=== PATIENT | male | born 1985 | race Caucasian/White ===

== ENCOUNTER 2016-11-06 19:05 | Emergency (ER) | payer OTHER ==
[2016-11-06] MEDS ORDERED: HYDROcodone/APAP 5-325MG 1 EACH TAB PO STA (21:42)
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
[2016-11-06 21:57] VITALS: BP 158/68; PULSE 100; RESP 20; TEMP 98
== END 2016-11-06 21:57 | disposition home or self-care (01) ==
LOC: EC 19:05
DX: K43.2 Incisional hernia without obstruction or gangrene (principal); R05 Cough; F17.200 Nicotine dependence, unspecified, uncomplicated; Z98.890 Other specified postprocedural states
CPT/HCPCS: 99283

== ENCOUNTER → 2016-11-19 | Outpatient (CLI) | payer OTHER ==
--- NOTE | 2016-11-19 16:51 | CT ---
EXAMINATION TYPE: CT abdomen pelvis w con DATE OF EXAM: 11/19/2016 4:42 PM COMPARISON: NONE HISTORY: Incisional hernia superior to umbilicus without obstruction or gangrene per order. CT DLP: 923.30 mGycm, Automated Exposure Control for Dose Reduction was Utilized. CONTRAST: CT scan of the abdomen and pelvis is performed with oral and with IV Contrast, patient injected with 100 mL of Omnipaque 300. FINDINGS: LUNG BASES: There is calcified 6 mm nodule in the left lower lobe on axial image 1. LIVER/GB: Liver is low dense suggesting diffuse fatty infiltration. PANCREAS: No significant abnormality is seen. SPLEEN: No significant abnormality is seen. ADRENALS: No significant abnormality is seen. KIDNEYS: No significant abnormality is seen. BOWEL: Normal contrast-filled appendix is seen from cecum. Evaluation of distal bowel is suboptimal a s oral contrast does not reach past distal transverse colon level. There is mild wall thickening invo lving the left and proximal to mid sigmoid colon over a continuous segment. A long segment mild colit is needs to BE considered. In the midline of the abdominal wall roughly 7.5 cm superior to the umbili cus on coronal image 8 there is hernia containing portion of transverse colon. No suspicious dilatati on is seen to suggest obstruction. Hernia neck measures 3.2 cm transversely on axial image 30. There is additional ventral wall hernia defect right of midline on axial image 38 with herniated fat and small mesenteric vessels extending to left of midline above the umbilicus. There is a small fat-containing left periumbilical hernia on axial image 51. PROSTATE/SEMINAL VESICLES: No gross abnormality seen. LYMPH NODES: No greater than 1cm abdominal or pelvic lymph nodes are appreciated. OSSEOUS STRUCTURES: No significant abnormality is seen. OTHER: No significant additional abnormality is seen. IMPRESSION: 1. There is ventral wall incisional hernia in the midline of the abdomen above the umbilicus containi ng nonobstructed transverse colon. There are 2 additional smaller fat-containing ventral wall hernias as noted above. 2. Possible mild colitis involving the entire left and proximal sigmoid colon, differential includes infectious or inflammatory etiologies, clinical correlation advised.
== END | disposition home or self-care (01) ==
LOC: RADCTMAIN 16:16
PROVIDERS: ATTEND Surgery
DX: K43.2 Incisional hernia without obstruction or gangrene (principal); K43.9 Ventral hernia without obstruction or gangrene
CPT/HCPCS: 74177; Q9967

== ENCOUNTER → 2017-02-20 | Outpatient (CLI) | payer OTHER ==
--- NOTE | 2017-02-20 15:41 | XR ---
EXAMINATION TYPE: XR lumbar spine 2 or 3V DATE OF EXAM: 02/20/2017 COMPARISON: NONE HISTORY: Low back pain TECHNIQUE: Three-view lumbar spine FINDINGS: There 5 lumbar-type vertebral bodies. Pedicles are intact. Disc heights are preserved. Mini mal disc space narrowing and minimal retrolisthesis of L5 on S1 may be present. Vertebral body height s are preserved. Spina bifida occulta of S1 is present. IMPRESSION: 1. Minimal retrolisthesis of L5 on S1. 2. Posterior L5-S1 disc space narrowing may be present. 3. Acute osseous abnormality is not otherwise identified.
== END ==
LOC: RADXRMAIN 15:22
PROVIDERS: ATTEND Internal Medicine Geriatric Medicine
DX: M48.07 Spinal stenosis, lumbosacral region (principal); M43.17 Spondylolisthesis, lumbosacral region
CPT/HCPCS: 72100

== ENCOUNTER → 2017-06-04 | Outpatient (CLI) | payer OTHER ==
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
== END | disposition home or self-care (01) ==
LOC: RADUSWWP 06:52
PROVIDERS: ATTEND Internal Medicine Geriatric Medicine
DX: K76.0 Fatty (change of) liver, not elsewhere classified (principal); R16.0 Hepatomegaly, not elsewhere classified
CPT/HCPCS: 76700

== ENCOUNTER → 2017-12-03 | Outpatient (CLI) | payer OTHER ==
--- NOTE | 2017-12-03 09:15 | CT ---
EXAMINATION TYPE: CT brain wo con DATE OF EXAM: 12/03/2017 HISTORY: Patient complains of new onset seizures. CT DLP: 809.2 mGycm. Automated Exposure Control for Dose Reduction was Utilized. TECHNIQUE: CT scan of the head is performed without contrast. COMPARISON: None. FINDINGS: There is no acute intracranial hemorrhage or midline shift identified. There is diffuse v entricular and sulcal prominence consistent with diffuse age-related cerebral atrophy. There is post surgical change from low occipital craniectomy without suspicious residual tonsillar descent. The tika bes are intact and the visualized sinuses are clear. IMPRESSION: No acute intracranial hemorrhage or midline shift. There is mild to moderate diffuse ag e-related cerebral atrophy quite pronounced for patient's chronologic age. There is evidence of prio r Chiari type I correction surgery. Correlate with old outside CT or MRI advised to assess for interv al change.
== END | disposition home or self-care (01) ==
LOC: RADCTMAIN 08:34
PROVIDERS: ATTEND Internal Medicine Geriatric Medicine
DX: G31.9 Degenerative disease of nervous system, unspecified (principal); Z98.890 Other specified postprocedural states
CPT/HCPCS: 70450

== ENCOUNTER → 2017-12-31 | Outpatient (CLI) | payer OTHER ==
--- NOTE | 2017-12-31 13:17 | MR ---
EXAMINATION TYPE: MR brain wo/w con DATE OF EXAM: 12/31/2017 COMPARISON: NONE HISTORY: Seizure TECHNIQUE: Multiplanar, multisequence images of the brain and brainstem is performed without and with IV contras t, utilizing 7.5 mL intravenous Gadavist . FINDINGS: Diffusion weighted images demonstrate no evidence of a recent infarct or other diffusion ab normality. Ventricular system consistent with the patient's age. Nasal septal deviation noted. Changes of chroni c sinusitis. Midline structures demonstrate normal morphology. The craniocervical junction appears within normal limits. Post contrast images demonstrate no abnormal enhancement. The dural venous sinuses appear pa tent. IMPRESSION: 1. Mild chronic sinusitis with no acute process.
== END | disposition home or self-care (01) ==
LOC: RADMRIMAIN 11:39
PROVIDERS: ATTEND Nurse Practitioner Family
DX: R56.9 Unspecified convulsions (principal)
CPT/HCPCS: 70553; A9581

== ENCOUNTER 2020-07-07 20:21 | Emergency (ER) | payer OTHER ==
[2020-07-07] MEDS ORDERED: SODIUM CHLORIDE 0.9% 1,000 ML IV STA (20:54)
[2020-07-07] MEDS ORDERED: levETIRAcetam IV 1,000 MG in SALINE 1 100ML.BAG IVPB STA (20:55)
--- NOTE | 2020-07-07 21:04 | ED ---
Seizure HPI - General Chief Complaint: Seizure Stated Complaint: seizure Time Seen by Provider: 07/07/20 20:25 Source: patient, EMS Mode of arrival: EMS Limitations: no limitations - History of Present Illness Initial Comments: 35-year-old male patient presents to the emergency department today for evaluation after having a seizure at home. Patient states that one moment he was okay and the next moment he woke up on the floor with EMS personnel around him. States that family members reported that he had a seizure. He is unsure of the details. Denies any loss of bowel or bladder control or tongue biting. Patient states he has had one seizure in the past approximately one year ago. States he was started on Keppra at that time. Patient does admit that he does not take the medication as directed. He also admits to heavy alcohol use, states it is usually , Friday, Friday though he has been drinking more frequently recently. Denies history of alcohol withdrawal, DTs, or seizures related to alcohol use. He denies any current headache, blurred vision, double vision. Denies any current upper respiratory symptoms or fever. He is reporting some mild low back pain which she attributes to the fall. Denies any radiating pain down the legs. Denies numbness or tingling to the lower extremities. Denies any saddle anesthesia or loss of bowel or bladder control. Patient denies any recent rash, cough, shortness of breath, chest pain, abdominal pain, nausea, vomiting, diarrhea, constipation, back pain, dizziness, weakness, hematuria, dysuria, urinary urgency, urinary frequency, or any other complaints. - Related Data Previous Rx's Medication Instructions Recorded LORazepam [Ativan] 1 mg PO BID 3 Days #6 tab 07/07/20 Allergies Allergy/AdvReac Type Severity Reaction Status Date / Time No Known Allergies Allergy Verified 06/20/17 11:00 Review of Systems ROS Statement: Those systems with pertinent positive or pertinent negative responses have been documented in the HPI. ROS Other: All systems not noted in ROS Statement are negative. Past Medical History Past Medical History: No Reported History, Seizure Disorder Additional Past Medical History / Comment(s): hernias, glacoma History of Any Multi-Drug Resistant Organisms: None Reported Additional Past Surgical History / Comment(s): stomach surgery, spleen sx Past Psychological History: Depression Smoking Status: Current every day smoker Past Alcohol Use History: Daily Past Drug Use History: None Reported General Exam Limitations: no limitations General appearance: alert, in no apparent distress, other (This is a well-developed, well-nourished adult male patient in no acute distress. ) Eye exam: Present: normal appearance, PERRL, EOMI. Absent: scleral icterus, conjunctival injection, nystagmus, periorbital swelling ENT exam: Present: normal exam, normal oropharynx, mucous membranes moist Respiratory exam: Present: normal lung sounds bilaterally. Absent: respiratory distress, wheezes, rales, rhonchi, stridor Cardiovascular Exam: Present: regular rate, normal rhythm, normal heart sounds. Absent: systolic murmur, diastolic murmur, rubs, gallop, clicks GI/Abdominal exam: Present: soft, normal bowel sounds. Absent: distended, tenderness, guarding, rebound, rigid Neurological exam: Present: alert, oriented X3, CN II-XII intact, other (Mild tremor noted to the upper extremities.) Psychiatric exam: Present: normal affect, normal mood Skin exam: Present: warm, dry, intact, normal color. Absent: rash Course Vital Signs 07/07/20 07/07/20 07/07/20 20:24 21:31 22:45 Temperature 98.2 F 98.6 F 98.2 F Pulse Rate 88 85 89 Respiratory 18 18 16 Rate Blood Pressure 130/82 142/84 147/79 O2 Sat by Pulse 97 96 98 Oximetry Medical Decision Making - Medical Decision Making 35-year-old male patient presents to the emergency department today for evaluation after having a seizure. Physical examination was unremarkable. He is neurologically intact with no focal deficits. he does admit to not taking his Keppra as directed. We did give him IV loading dose. Labs were unremarkable. He does admit to being a heavy drinker. We did discuss possibility of alcohol withdrawal seizure. He is given a dose of Valium here in the emergency department. He will be given a prescription for Ativan. He is instructed that he should not drink alcohol and take this medication together. He is instructed to follow up his primary care physician for recheck in 1-2 days. Return parameters were discussed in detail. He verbalizes understanding and agrees with this plan. - Lab Data Result diagrams: 07/07/20 20:57 07/07/20 20:57 Lab Results 07/07/20 07/07/20 Range/Units 20:57 20:57 WBC 4.3 (3.8-10.6) k/uL RBC 4.18 L (4.30-5.90) m/uL Hgb 14.1 (13.0-17.5) gm/dL Hct 42.6 (39.0-53.0) % MCV 101.9 H (80.0-100.0) fL MCH 33.6 (25.0-35.0) pg MCHC 33.0 (31.0-37.0) g/dL RDW 13.0 (11.5-15.5) % Plt Count 213 (150-450) k/uL MPV 7.5 Neutrophils % 64 % Lymphocytes % 29 % Monocytes % 4 % Eosinophils % 1 % Basophils % 1 % Neutrophils # 2.8 (1.3-7.7) k/uL Lymphocytes # 1.3 (1.0-4.8) k/uL Monocytes # 0.2 (0-1.0) k/uL Eosinophils # 0.0 (0-0.7) k/uL Basophils # 0.0 (0-0.2) k/uL Macrocytosis Slight Sodium 133 L (137-145) mmol/L Potassium 4.0 (3.5-5.1) mmol/L Chloride 101 (98-107) mmol/L Carbon Dioxide 17 L (22-30) mmol/L Anion Gap 15 mmol/L BUN 7 L (9-20) mg/dL Creatinine 0.74 (0.66-1.25) mg/dL Est GFR (CKD-EPI)AfAm >90 (>60 ml/min/1.73 sqM) Est GFR (CKD-EPI)NonAf >90 (>60 ml/min/1.73 sqM) Glucose 140 H (74-99) mg/dL Calcium 9.4 (8.4-10.2) mg/dL Total Bilirubin 0.7 (0.2-1.3) mg/dL AST 47 (17-59) U/L ALT 39 (4-49) U/L Alkaline Phosphatase 52 (38-126) U/L Total Protein 7.7 (6.3-8.2) g/dL Albumin 4.7 (3.5-5.0) g/dL Serum Alcohol <10 mg/dL - EKG Data -: EKG Interpreted by Me EKG Comments: EKG obtained at 2033 shows normal sinus rhythm with a ventricular rate of 92, WV interval 184, QRS duration 106, QT 362, QTc 447. No evidence of ST elevation or depression. Disposition Clinical Impression: Seizure Disposition: HOME SELF-CARE Condition: Good Instructions (If sedation given, give patient instructions): Recurrent Seizures in Adults (ED) Additional Instructions: Take medications as directed. Do not drink alcohol while taking his medications. Follow-up through primary care physician for recheck in 1-2 days. Continue taking her seizure medication as directed. Return to the emergency department immediately for any new, worsening, or concerning symptoms. Prescriptions: LORazepam [Ativan] 1 mg PO BID 3 Days #6 tab Is patient prescribed a controlled substance at d/c from ED?: No Referrals: Steve Stubbs MD [Primary Care Provider] - 1-2 days Time of Disposition: 22:56
[2020-07-07 21:20] LABS: Basophils % (A) 1 %; Eosinophils % (A) 1 %; HCT 42.6 % (39.0-53.0); HGB 14.1 gm/dL (13.0-17.5); Lymphocytes # (A) 1.3 k/uL (1.0-4.8); Lymphocytes % (A) 29 %; MCH 33.6 pg (25.0-35.0); MCV 101.9 fL (80.0-100.0); Macrocytosis Slight; Mean Platelet Volume 7.5; Monocytes # (A) 0.2 k/uL (0-1.0); Monocytes % (A) 4 %; Neutrophils # (A) 2.8 k/uL (1.3-7.7); Neutrophils % (A) 64 %; Platelet Count 213 k/uL (150-450); RBC 4.18 m/uL (4.30-5.90); WBC 4.3 k/uL (3.8-10.6)
[2020-07-07 21:28] LABS: ALT 39 U/L (4-49); African American GFR (CKD) >90 (>60 ml/min/1.73 sqM); Albumin 4.7 g/dL (3.5-5.0); Alcohol <10 mg/dL; Anion Gap 15 mmol/L; Blood Urea Nitrogen 7 mg/dL (9-20); Calcium 9.4 mg/dL (8.4-10.2); Carbon Dioxide 17 mmol/L (22-30); Chloride 101 mmol/L (98-107); Glucose 140 mg/dL (74-99); Non-African American GFR(CKD) >90 (>60 ml/min/1.73 sqM); Sodium 133 mmol/L (137-145); Total Bilirubin 0.7 mg/dL (0.2-1.3); Total Protein 7.7 g/dL (6.3-8.2)
[2020-07-07 21:44] LABS: AST 47 U/L (17-59); Alkaline Phosphatase 52 U/L (38-126)
[2020-07-07] MEDS ORDERED: DIAZEPAM 5 MG/ML 2 ML INJ IVP STA (22:55)
[2020-07-07 23:16] VITALS: BP 147/79; PULSE 89; RESP 16; TEMP 98.2
== END 2020-07-07 23:05 | disposition home or self-care (01) ==
LOC: EC 20:21
DX: R56.9 Unspecified convulsions (principal); F17.200 Nicotine dependence, unspecified, uncomplicated
CPT/HCPCS: 93005; 80053; 80177; 85025; 99284; 96374; 96375; 96361; G0480; J3360; J1953; 80320

== ENCOUNTER 2020-12-25 21:04 | Emergency (ER) | payer OTHER ==
[2020-12-25 21:13] VITALS: TEMP 98.1
[2020-12-25 22:20] VITALS: RESP 16
[2020-12-25] MEDS ORDERED: SODIUM CHLORIDE 0.9% 1,000 ML IV STA (22:27)
[2020-12-25] MEDS ORDERED: levETIRAcetam IV 1,000 MG in SALINE 1 100ML.BAG IVPB STA (22:28)
[2020-12-25 23:04] LABS: Basophils % (A) 0 %; Eosinophils # (A) 0.1 k/uL (0-0.7); Eosinophils % (A) 1 %; HCT 39.9 % (39.0-53.0); HGB 14.2 gm/dL (13.0-17.5); Lymphocytes # (A) 0.8 k/uL (1.0-4.8); Lymphocytes % (A) 14 %; MCH 35.2 pg (25.0-35.0); MCHC 35.7 g/dL (31.0-37.0); MCV 98.5 fL (80.0-100.0); Mean Platelet Volume 8.1; Monocytes # (A) 0.2 k/uL (0-1.0); Monocytes % (A) 4 %; Neutrophils # (A) 4.2 k/uL (1.3-7.7); RBC 4.05 m/uL (4.30-5.90); RDW 13.3 % (11.5-15.5); WBC 5.3 k/uL (3.8-10.6)
[2020-12-25 23:10] LABS: ALT 30 U/L (4-49); AST 42 U/L (17-59); African American GFR (CKD) >90 (>60 ml/min/1.73 sqM); Albumin 4.6 g/dL (3.5-5.0); Alcohol <10 mg/dL; Alkaline Phosphatase 71 U/L (38-126); Anion Gap 8 mmol/L; Blood Urea Nitrogen 6 mg/dL (9-20); Calcium 9.5 mg/dL (8.4-10.2); Carbon Dioxide 26 mmol/L (22-30); Chloride 98 mmol/L (98-107); Glucose 111 mg/dL (74-99); Non-African American GFR(CKD) >90 (>60 ml/min/1.73 sqM); Potassium 3.7 mmol/L (3.5-5.1); Sodium 132 mmol/L (137-145); Total Bilirubin 0.8 mg/dL (0.2-1.3); Total Protein 7.4 g/dL (6.3-8.2)
--- NOTE | 2020-12-25 23:32 | CT ---
EXAMINATION TYPE: CT brain cspine wo con DATE OF EXAM: 12/25/2020 COMPARISON: CT brain 12/03/2017 HISTORY: seizure, fall CT DLP: 1309.5 mGycm Automated exposure control for dose reduction was used. Ventricles have normal size. There is no mass effect nor midline shift. There is no evidence of intra cranial hemorrhage. Calvarium is intact. Cervical vertebra have normal alignment. Posterior elements are intact. Disc spaces are fairly normal . Facet joints are intact. There is normal aeration of the mastoid sinuses. IMPRESSION: Negative CT scan cervical spine. Negative CT scan of the brain. No adverse change.
--- NOTE | 2020-12-25 23:35 | XR ---
EXAMINATION TYPE: XR ribs LT w pa chest xray DATE OF EXAM: 12/25/2020 COMPARISON: NONE HISTORY: Rib pain TECHNIQUE: 5 views FINDINGS: Heart and mediastinum are normal. Lungs are clear. Diaphragm is normal. There is no evidenc e of pleural effusion or pneumothorax. Left shoulder is intact. The left ribs appear intact. IMPRESSION: Normal chest. Normal left rib exam.
[2020-12-26 00:33] LABS: Platelet Count 83 k/uL (150-450)
--- NOTE | 2020-12-26 00:40 | ED ---
Seizure HPI - General Chief Complaint: Seizure Stated Complaint: seizure Time Seen by Provider: 12/25/20 22:07 Source: patient Mode of arrival: wheelchair Limitations: no limitations - History of Present Illness Initial Comments: 35 year-old male patient with history of seizures and alcohol abuse, presents to the emergency department for evaluation after having a seizure at home. Patient states that he was standing and fell backward, family witnessed the seizure which they state lasted around 5 minutes. Patient denies any tongue biting, loss of bowel, or bladder control. Patient does drink alcohol states that he last drank yesterday. He is reporting headache and back pain after the fall. Denies any neck pain. Denies any radiating leg pain. Denies saddle anesthesia. Denies numbness, tingling, or weakness to the extremities. Denies any blurred vision, double vision, denies spots or floaters. Patient denies any recent rash, fever, chills, cough, shortness of breath, chest pain, abdominal pain, nausea, vomiting, diarrhea, constipation, hematuria, dysuria, urinary urgency, urinary frequency, or any other complaints. - Related Data Home Medications Medication Instructions Recorded Confirmed Ibuprofen [Motrin Ib] 800 mg PO Q8H PRN 12/25/20 12/25/20 Keppra (Unknown Strength) 1 dose PO BID 12/25/20 12/25/20 Latanoprost/Pf [Latanoprost 0.005% 1 drop BOTH EYES HS 12/25/20 12/25/20 Eye Drop] Allergies Allergy/AdvReac Type Severity Reaction Status Date / Time No Known Allergies Allergy Verified 12/25/20 22:24 Review of Systems ROS Statement: Those systems with pertinent positive or pertinent negative responses have been documented in the HPI. ROS Other: All systems not noted in ROS Statement are negative. Past Medical History Past Medical History: No Reported History, Seizure Disorder Additional Past Medical History / Comment(s): hernias, glacoma History of Any Multi-Drug Resistant Organisms: None Reported Additional Past Surgical History / Comment(s): stomach surgery, spleen sx Past Psychological History: Depression Smoking Status: Current every day smoker Past Alcohol Use History: Daily Past Drug Use History: None Reported General Exam Limitations: no limitations General appearance: alert, in no apparent distress, other (Physical well- developed, well-nourished adult male patient in no acute distress. Vital signs upon presentation are temperature 98.1F, pulse 125, respirations 18, blood pres sure 134/96, pulse ox 95% on room air.) Eye exam: Present: normal appearance, PERRL, EOMI. Absent: scleral icterus, conjunctival injection, nystagmus, periorbital swelling ENT exam: Present: normal exam, normal oropharynx, mucous membranes moist Neck exam: Present: normal inspection, full ROM, other (Nontender, no step-off, no deformity to firm midline palpation of the posterior cervical spine. Full range of motion without pain or limitation.). Absent: tenderness, meningismus, lymphadenopathy Respiratory exam: Present: normal lung sounds bilaterally. Absent: respiratory distress, wheezes, rales, rhonchi, stridor Cardiovascular Exam: Present: regular rate, normal rhythm, normal heart sounds. Absent: systolic murmur, diastolic murmur, rubs, gallop, clicks GI/Abdominal exam: Present: soft, normal bowel sounds. Absent: distended, tenderness, guarding, rebound, rigid Neurological exam: Present: alert, oriented X3, CN II-XII intact Expanded Speech: Present: fluid speech Cranial nerves: EOM's Intact: Normal, Nystagmus: Normal Motor strength exam: RUE: 5, LUE: 5, RLE: 5, LLE: 5 Eye Response: (4) open spontaneously Motor Response: (6) obeys commands Verbal Response: (5) oriented [place] Total: 15 Psychiatric exam: Present: normal affect, normal mood Skin exam: Present: warm, dry, intact, normal color. Absent: rash Course Vital Signs 12/25/20 12/25/20 12/25/20 21:10 22:17 23:24 Temperature 98.1 F Pulse Rate 125 H 82 75 Respiratory 18 16 16 Rate Blood Pressure 134/96 129/82 122/83 O2 Sat by Pulse 95 98 98 Oximetry 12/26/20 01:35 Temperature Pulse Rate 71 Respiratory 16 Rate Blood Pressure 108/89 O2 Sat by Pulse 100 Oximetry Medical Decision Making - Medical Decision Making 35 year-old male patient presents for evaluation after seizure. Has had seizures in the past. Not currently taking any medication. Does admit to almost daily alcohol use. Labs reviewed and are relatively unremarkable. CT brain cspine negative. XR left ribs negative. He exhibited no further seizure activity and remained neurologically intact. He will be discharged to follow up with primary care physician for further evaluation and possibly follow up with neurology. Return parameters discussed in detail. Case discussed with my attending Dr. Esteban mata. - Lab Data Result diagrams: 12/25/20 22:36 12/25/20 22:36 Lab Results 12/25/20 12/25/20 Range/Units 22:36 22:36 WBC 5.3 (3.8-10.6) k/uL RBC 4.05 L (4.30-5.90) m/uL Hgb 14.2 (13.0-17.5) gm/dL Hct 39.9 (39.0-53.0) % MCV 98.5 (80.0-100.0) fL MCH 35.2 H (25.0-35.0) pg MCHC 35.7 (31.0-37.0) g/dL RDW 13.3 (11.5-15.5) % Plt Count 83 L (150-450) k/uL MPV 8.1 Lymphocytes % 14 % Monocytes % 4 % Eosinophils % 1 % Basophils % 0 % Neutrophils # 4.2 (1.3-7.7) k/uL Lymphocytes # 0.8 L (1.0-4.8) k/uL Monocytes # 0.2 (0-1.0) k/uL Eosinophils # 0.1 (0-0.7) k/uL Basophils # 0.0 (0-0.2) k/uL Sodium 132 L (137-145) mmol/L Potassium 3.7 (3.5-5.1) mmol/L Chloride 98 (98-107) mmol/L Carbon Dioxide 26 (22-30) mmol/L Anion Gap 8 mmol/L BUN 6 L (9-20) mg/dL Creatinine 0.62 L (0.66-1.25) mg/dL Est GFR (CKD-EPI)AfAm >90 (>60 ml/min/1.73 sqM) Est GFR (CKD-EPI)NonAf >90 (>60 ml/min/1.73 sqM) Glucose 111 H (74-99) mg/dL Calcium 9.5 (8.4-10.2) mg/dL Total Bilirubin 0.8 (0.2-1.3) mg/dL AST 42 (17-59) U/L ALT 30 (4-49) U/L Alkaline Phosphatase 71 (38-126) U/L Total Protein 7.4 (6.3-8.2) g/dL Albumin 4.6 (3.5-5.0) g/dL Serum Alcohol <10 mg/dL - Radiology Data Radiology results: report reviewed, image reviewed X-ray of the left ribs and chest were obtained. Report was reviewed in its entirety. Impression by Dr. Lowry shows normal chest. Normal left rib exam. CT brain and C-spine were obtained. Report was reviewed in its entirety. Impression by Dr. Lowry shows negative computed tomography scan cervical spine. Negative computed tomography scan of the brain. No adverse change. Disposition Clinical Impression: Seizure, Contusion of back, Abrasion of back, Scalp hematoma Disposition: HOME SELF-CARE Condition: Good Instructions (If sedation given, give patient instructions): Contusion in Adults (ED), Abrasion (ED), Recurrent Seizures in Adults (ED) Additional Instructions: Follow-up with primary care physician and neurologist for further evaluation as soon as possible. Consider halfway cessation of alcohol. Return to the emergency department for any new, worsening, or concerning symptoms. Is patient prescribed a controlled substance at d/c from ED?: No Referrals: Steve Stubbs MD [Primary Care Provider] - 1-2 days Time of Disposition: 01:12
[2020-12-26 01:36] VITALS: BP 108/89; PULSE 71
== END 2020-12-26 01:38 | disposition home or self-care (01) ==
LOC: EC 21:04
DX: S00.03XA Contusion of scalp, initial encounter (principal); S20.229A Contusion of unspecified back wall of thorax, initial encounter; R56.9 Unspecified convulsions; F17.200 Nicotine dependence, unspecified, uncomplicated; Z79.1 Long term (current) use of non-steroidal anti-inflammatories (NSAID); Z79.899 Other long term (current) drug therapy; W19.XXXA Unspecified fall, initial encounter
CPT/HCPCS: 36415; 80053; 85025; 71101; 72125; 70450; 99285; 96365; 96366; G0480; J1953; 80320

== ENCOUNTER 2023-06-02 19:39 | Observation (INO) | payer OTHER ==
[2023-06-02] MEDS ORDERED: SODIUM CHLORIDE 0.9% 500 ML 500 ML IV STA (20:11)
[2023-06-02] MEDS ORDERED: LORazepam 2 MG/ML INJ IV STA (20:11)
--- NOTE | 2023-06-02 21:23 | ED ---
General Adult HPI - General Chief complaint: Seizure Stated complaint: Seizure Time Seen by Provider: 06/02/23 20:04 Source: patient, EMS, RN notes reviewed, old records reviewed Mode of arrival: EMS - History of Present Illness Initial comments: 38-year-old male presents for evaluation of seizure. Patient does have seizure disorder and states that he does not take his medication as prescribed. He had 3-4 minute seizure with head trauma. He complains of headache at the time my evaluation. He also admits to daily drinking and states that his last drink was yesterday. He does also have a history of alcohol withdrawal seizure. - Related Data Home Medications Medication Instructions Recorded Confirmed Ibuprofen [Motrin Ib] 800 mg PO Q8H PRN 12/25/20 06/02/23 Allergies Allergy/AdvReac Type Severity Reaction Status Date / Time No Known Allergies Allergy Verified 06/02/23 22:27 Review of Systems ROS Statement: Those systems with pertinent positive or pertinent negative responses have been documented in the HPI. ROS Other: All systems not noted in ROS Statement are negative. Past Medical History Past Medical History: Seizure Disorder Additional Past Medical History / Comment(s): hernias, glacoma History of Any Multi-Drug Resistant Organisms: None Reported Additional Past Surgical History / Comment(s): stomach surgery, spleen sx Past Psychological History: Depression Smoking Status: Current every day smoker Past Alcohol Use History: Daily Past Drug Use History: None Reported General Exam General appearance: alert, in no apparent distress Head exam: Present: other (Right parietal occipital hematoma) Eye exam: Present: PERRL, EOMI ENT exam: Present: normal exam Neck exam: Present: normal inspection. Absent: tenderness, meningismus Respiratory exam: Present: normal lung sounds bilaterally. Absent: respiratory distress, wheezes Cardiovascular Exam: Present: regular rate, normal rhythm GI/Abdominal exam: Present: soft. Absent: distended, tenderness, guarding Extremities exam: Present: normal capillary refill. Absent: pedal edema Neurological exam: Present: alert, oriented X3, CN II-XII intact. Absent: motor sensory deficit Psychiatric exam: Present: normal affect, normal mood Skin exam: Present: warm, dry, intact. Absent: cyanosis, diaphoretic Course Vital Signs 06/02/23 06/02/23 19:41 22:27 Temperature 97.9 F Pulse Rate 93 89 Respiratory 18 18 Rate Blood Pressure 132/96 121/86 O2 Sat by Pulse 97 98 Oximetry Medical Decision Making - Medical Decision Making Was pt. sent in by a medical professional or institution ([facility], [employer], urgent care, hospital, or penitentiary...) When possible be specific @ -[No] Did you speak to anyone other than the patient for history (EMS, parent, family, police, friend...)? What history was obtained from this source @ -[No] Did you review nursing and triage notes (agree or disagree)? Why? @ -[I reviewed and agree with nursing and triage notes] Were old charts reviewed (outside hosp., previous admission, EMS record, old EKG, old radiological studies, urgent care reports/EKG's, penitentiary records)? Report findings @ -[No old charts were reviewed] Differential Diagnosis (chest pain, altered mental status, abdominal pain women, abdominal pain men, vaginal bleeding, weakness, fever, dyspnea, syncope, headache, dizziness, GI bleed, back pain, seizure, CVA, palpatations, mental health, musculoskeletal)? @Differential Seizure: Recurrent seizure disorder, febrile seizure, alcohol withdrawal, stimulants, meningitis, encephalitis, intercranial hemorrhage, intracranial tumor, stroke, eclampsia, thyrotoxicosis, hypocalcemia, hyponatremia, hypernatremia, hypomagnesemia, psychogenic, this is not meant to be an all-inclusive list. EKG interpreted by me (3pts min.). @Sinus rhythm rate of 91, CA interval 188, QRS duration 105, QTC [address] segment elevation. X-rays interpreted by me (1pt min.). @ -[None done] CT interpreted by me (1pt min.). @ CT negative for intracranial hemorrhage or mass effect U/S interpreted by me (1pt. min.). @ -[None done] What testing was considered but not performed or refused? (CT, X-rays, U/S, labs)? Why? @ -[None] What meds were considered but not given or refused? Why? @ -[None] Did you discuss the management of the patient with other professionals (professionals i.e. [facility], [employer], lab, RT, psych nurse, social group worker, ditch rider, t eacher, personnel officer, case briefer)? Give summary @Case discussed with Dr. May who will admit Was smoking cessation discussed for >3mins.? @ -[No] Was critical care preformed (if so, how long)? @ -[No] Were there social determinants of health that impacted care today? How? (Homelessness, low income, unemployed, alcoholism, drug addiction, transportation, low edu. Level, literacy, decrease access to med. care, longterm, rehab)? @ -[No] Was there de-escalation of care discussed even if they declined (Discuss DNR or withdrawal of care, Hospice)? DNR status @ -[No] What co-morbidities impacted this encounter? (DM, HTN, Smoking, COPD, CAD, Cancer, CVA, ARF, Chemo, Hep., AIDS, mental health diagnosis, sleep apnea, morbid obesity)? @ -[None] Was patient admitted / discharged? Hospital course, mention meds given and route, prescriptions, significant lab abnormalities, going to OR and other pertinent info. @ -[38-year-old male with witnessed seizure, head trauma, and history of both seizure history and withdrawal seizure history. Patient is alert and oriented, moving all extremities. Nonfocal neurologic exam. Stable vitals. He is somewhat tremulous. Given 2 At[address] upon arrival. Head CT negative for intracranial hemorrhage or mass effect. Laboratory studies reveal hypomagnesemia which is replaced. Patient will be admitted for suspected alcohol withdrawal seizure. Neurology has been placed on consult for evaluation. Undiagnosed new problem with uncertain prognosis? @ -[No] Drug Therapy requiring intensive monitoring for toxicity (Heparin, Nitro, Insulin, Cardizem)? @ -[No] Were any procedures done? @ -[No] Diagnosis/symptom? @ -[Seizure, alcohol withdrawal Acute, or Chronic, or Acute on Chronic? @ -Acute Uncomplicated (without systemic symptoms) or Complicated (systemic symptoms)? @ -Complicated Side effects of treatment? @ -[No] Exacerbation, Progression, or Severe Exacerbation? @ -[No] Poses a threat to life or bodily function? How? (Chest pain, [place], [place], pneumonia, PE, COPD, DKA, ARF, appy, cholecystitis, CVA, Diverticulitis, Homicidal, Suicidal, threat to staff... and all critical care pts) @ -[Yes, seizure, alcohol withdrawal, delirium tremens - Lab Data Result diagrams: 06/02/23 20:29 06/02/23 20:29 Lab Results 06/02/23 06/02/23 06/02/23 Range/Units 20:29 20:29 20:29 WBC 4.0 (3.8-10.6) k/uL RBC 3.77 L (4.30-5.90) m/uL Hgb 13.5 (13.0-17.5) gm/dL Hct 39.4 (39.0-53.0) % MCV 104.5 H (80.0-100.0) fL MCH 35.7 H (25.0-35.0) pg MCHC 34.2 (31.0-37.0) g/dL RDW 13.4 (11.5-15.5) % Plt Count 73 L (150-450) k/uL MPV 8.2 Neutrophils % (Manual) 77 % Band Neuts % (Manual) 2 % Lymphocytes % (Manual) 18 % Monocytes % (Manual) 3 % Neutrophils # (Manual) 3.10 (1.3-7.7) k/uL Lymphocytes # (Manual) 0.72 L (1.0-4.8) k/uL Monocytes # (Manual) 0.12 (0-1.0) k/uL Nucleated RBCs 0 (0-0) /100 WBC Manual Slide Review Performed Macrocytosis Slight Sodium 137 (137-145) mmol/L Potassium 4.0 (3.5-5.1) mmol/L Chloride 99 (98-107) mmol/L Carbon Dioxide 24 (22-30) mmol/L Anion Gap 14 mmol/L BUN 9 (9-20) mg/dL Creatinine 0.58 L (0.66-1.25) mg/dL Est GFR (CKD-EPI)AfAm >90 (>60 ml/min/1.73 sqM) Est GFR (CKD-EPI)NonAf >90 (>60 ml/min/1.73 sqM) Glucose 113 H (74-99) mg/dL Calcium 9.4 (8.4-10.2) mg/dL Magnesium 1.2 L (1.6-2.3) mg/dL Total Bilirubin 1.0 (0.2-1.3) mg/dL AST 105 H (17-59) U/L ALT 57 H (4-49) U/L Alkaline Phosphatase 61 (38-126) U/L Total Protein 6.8 (6.3-8.2) g/dL Albumin 4.2 (3.5-5.0) g/dL Urine Color Yellow Urine Appearance Clear (Clear) Urine pH 8.0 (5.0-8.0) Ur Specific [place] 1.015 (1.001-1.035) Urine Protein 1+ H (Negative) Urine Glucose (UA) Negative (Negative) Urine Ketones 1+ H (Negative) Urine Blood Negative (Negative) Urine Nitrite Negative (Negative) Urine Bilirubin Negative (Negative) Urine Urobilinogen 2.0 (<2.0) mg/dL Ur Leukocyte Esterase Negative (Negative) Urine RBC 1 (0-5) /hpf Urine WBC 1 (0-5) /hpf Ur Squamous Epith Cells 1 (0-4) /hpf Amorphous Sediment Rare H (None) /hpf Hyaline Casts 17 H (0-2) /lpf Urine Mucus Few H (None) /hpf Urine Opiates Screen Not Detected (NotDetected) Ur Oxycodone Screen Not Detected (NotDetected) Urine Methadone Screen Not Detected (NotDetected) Ur Propoxyphene Screen Not Detected (NotDetected) Ur Barbiturates Screen Not Detected (NotDetected) U Tricyclic Antidepress Not Detected (NotDetected) Ur Phencyclidine Scrn Not Detected (NotDetected) Ur Amphetamines Screen Not Detected (NotDetected) U Methamphetamines Scrn Not Detected (NotDetected) U Benzodiazepines Scrn Detected H (NotDetected) Urine Cocaine Screen Not Detected (NotDetected) U Marijuana (THC) Screen Not Detected (NotDetected) Serum Alcohol <10 mg/dL Disposition Clinical Impression: Generalized seizure, Alcohol withdrawal Disposition: ADMITTED IP TO THIS HOSP Condition: Stable Instructions (If sedation given, give patient instructions): Seizure/Epilepsy Discharge Instructions & Follow-Up Is patient prescribed a controlled substance at d/c from ED?: No Referrals: None,Stated [Primary Care Provider] - 1-2 days Time of Disposition: 23:25
[2023-06-02 21:26] LABS: HCT 39.4 % (39.0-53.0); HGB 13.5 gm/dL (13.0-17.5); MCH 35.7 pg (25.0-35.0); MCHC 34.2 g/dL (31.0-37.0); MCV 104.5 fL (80.0-100.0); Macrocytosis Slight; Mean Platelet Volume 8.2; RBC 3.77 m/uL (4.30-5.90); RDW 13.4 % (11.5-15.5)
--- NOTE | 2023-06-02 21:34 | CT ---
EXAMINATION TYPE: CT brain wo con CT DLP: 1234.4 mGycm, Automated exposure control for dose reduction was used. DATE OF EXAM: 06/02/2023 8:48 PM COMPARISON: 12/25/2020. CLINICAL INDICATION:Male, 38 years old with history of seizure activity, seizure TECHNIQUE: Brain: Axial CT images of the brain were obtained with coronal and sagittal reformats created and rev iewed. Contrast used: None. Oral contrast used: None. FINDINGS: Brain: Extra-axial spaces: No abnormal extra-axial fluid collections. Ventricular system: Within normal limits Cerebral parenchyma: No acute intraparenchymal hemorrhage or mass effect. The fairchild-white junction is well differentiated. Cerebellum: Unremarkable. Mass effect: No evidence of midline shift. Intracranial vasculature: unremarkable Soft tissues: r right scalp hematoma measuring up to 4.1 x 6 mm. Calvarium/osseous structures: No depressed skull fracture. Paranasal sinuses and mastoid air cells: Mild scattered paranasal sinus disease. Visualized orbits: Orbital contents are intact. IMPRESSION: 1. No acute intracranial process. 2. Right scalp hematoma without evidence of fracture.
[2023-06-02 21:40] LABS: ALT 57 U/L (4-49); AST 105 U/L (17-59); African American GFR (CKD) >90 (>60 ml/min/1.73 sqM); Albumin 4.2 g/dL (3.5-5.0); Alcohol <10 mg/dL; Alkaline Phosphatase 61 U/L (38-126); Anion Gap 14 mmol/L; Blood Urea Nitrogen 9 mg/dL (9-20); Calcium 9.4 mg/dL (8.4-10.2); Carbon Dioxide 24 mmol/L (22-30); Chloride 99 mmol/L (98-107); Glucose 113 mg/dL (74-99); Magnesium 1.2 mg/dL (1.6-2.3); Non-African American GFR(CKD) >90 (>60 ml/min/1.73 sqM); Sodium 137 mmol/L (137-145); Total Protein 6.8 g/dL (6.3-8.2)
[2023-06-02 21:55] LABS: Platelet Count 73 k/uL (150-450)
[2023-06-02] MEDS ORDERED: THIAMINE 100 MG/ML 2 ML VIAL IM STA (21:57)
[2023-06-02] MEDS ORDERED: LORazepam 2 MG/ML INJ IV PRN ×3 (21:57)
[2023-06-02 22:01] LABS: Band Neutrophils % 2 %; Lymphocytes # (M) 0.72 k/uL (1.0-4.8); Monocytes # (M) 0.12 k/uL (0-1.0); Neutrophils % (M) 77 %; Nucleated Red Blood Cells 0 /100 WBC (0-0); Total Cells Counted 100
[2023-06-02] MEDS: MAGNESIUM SULFATE-D5W PMX 1 GM in DEXTROSE/WATER 1 100ML.BAG IVPB SCH (22:21)
[2023-06-02] MEDS: SODIUM CHLORIDE 0.9% 1,000 ML IV SCH (22:26)
[2023-06-02 22:56] LABS: Amorphous Sediment,Urine Rare /hpf; Appearance,Urine Clear (Clear); Bilirubin,Urine Negative (Negative); Blood,Urine Negative (Negative); Color,Urine Yellow; Glucose,Urine (UA) Negative (Negative); Hyaline Casts,Urine 17 /lpf (0-2); Ketones,Urine 1+ (Negative); Leukocyte Esterase,Urine Negative (Negative); Mucus,Urine Few /hpf; Nitrite,Urine Negative (Negative); Protein,Urine 1+ (Negative); RBC,Urine 1 /hpf (0-5); Specific Gravity,Urine 1.015 (1.001-1.035); Squamous Epithelial Cell,Urine 1 /hpf (0-4); WBC,Urine 1 /hpf (0-5)
[2023-06-02 23:17] LABS: Amphetamine Screen,Urine Not Detected (NotDetected); Barbiturate Screen,Urine Not Detected (NotDetected); Benzodiazepines Screen,Urine Detected (NotDetected); Cocaine Screen,Urine Not Detected (NotDetected); Methadone Screen, Urine Not Detected (NotDetected); Opiate Screen,Urine Not Detected (NotDetected); Oxycodone Screen, Urine Not Detected (NotDetected); Phencyclidine Screen,Urine Not Detected (NotDetected); Tricyclic Antidepressant,Urine Not Detected (NotDetected); Urn Cannabinoid Scrn Not Detected (NotDetected)
[2023-06-02] MEDS ORDERED: NALOXONE 0.4 MG/ML 1 ML VIAL IV PRN (23:17)
[2023-06-03] MEDS: MAGNESIUM SULFATE-D5W PMX 1 GM in DEXTROSE/WATER 1 100ML.BAG IVPB SCH ×4 (00:14→12:58)
[2023-06-03] MEDS: THIAMINE 100 MG TAB PO SCH (08:42)
[2023-06-03] MEDS ORDERED: IBUPROFEN 800 MG TAB PO PRN (09:58)
[2023-06-03] MEDS: levETIRAcetam 500 MG TAB PO SCH ×2 (10:43→19:42)
[2023-06-03] MEDS: SODIUM CHLORIDE 0.9% 1,000 ML IV SCH (11:41)
--- NOTE | 2023-06-03 12:16 | P.CNNES ---
History of Present Illness Consult date: 06/03/23 Requesting physician: Teo Aparicio Reason for Consult: seizure History of Present Illness: This is a 2-year-old gentleman who presented emergency department because of seizure-like activity. The patient is accompanied with his brother who provides some of the history. His symptoms patient has significant alcohol use and he states that the he drinks a pint of alcohol every other day and states that he drank on the Friday but it seems that he was cutting down because she was having some abdominal issues and then the this Friday and he was taken at the garbage and while outside he had a seizure-like activity lasting about 34 minutes with some postictal confusion he does not recall the episodes that. He was notified he was shaking all extremities. He denies of any tongue bite, urinary bowel incontinence. The patient says states he has seizures from alcohol withdrawal. He was not clear if he had a prolonged alcohol cessation and he continued to have seizure initially stated yes and he was out without alcohol for a month but then his brother was at bedside stated that you're have never been the without alcohol for that period of time so it's unclear at. Seems the patient has been having seizure-like activity for the last 3 years. He denies any auras prior to the episodes. Denies of any headache, focal weakness, numbness, visual disturbance. As a result of the recent seizure he fell and the was on the side of the head. Again he denies of any headache. In the ED the patient was given 2 mg of Ativan. Patient was also given magnesium today at. Some other workup during this hospital visit consisted of: NCV is 104.5 AST of 105 ALT of 57. The initial serum glucoses 113, calcium 9.4, magnesium is 1.2. UDS: +ve for benzo and serum alcohol is <10. CT of the head is reported as no acute intracranial processes. Right scalp hematoma without evidence of fracture. I personally reviewed the CT and I agree with the report. Review of Systems The positive and negative as per HPI. Past Medical History Past Medical History: Seizure Disorder Additional Past Medical History / Comment(s): hernias, glacoma History of Any Multi-Drug Resistant Organisms: None Reported Additional Past Surgical History / Comment(s): stomach surgery, spleen sx Past Psychological History: Depression Smoking Status: Current every day smoker Past Alcohol Use History: Daily Past Drug Use History: None Reported Medications and Allergies Home Medications Medication Instructions Recorded Confirmed Type Ibuprofen [Motrin Ib] 800 mg PO Q8H PRN 12/25/20 06/02/23 History Allergies Allergy/AdvReac Type Severity Reaction Status Date / Time No Known Allergies Allergy Verified 06/02/23 22:27 Physical Examination - Vital Signs Vital Signs: Vital Signs Temp Pulse Pulse Resp BP BP Pulse Ox 06/03/23 07:00 97.8 F 76 18 130/85 99 06/03/23 00:40 97.5 F L 91 18 128/82 98 06/03/23 00:00 80 18 114/80 98 06/02/23 22:27 89 18 121/86 98 06/02/23 19:41 97.9 F 93 18 132/96 97 Intake and Output 06/02/23 06/03/23 06/03/23 22:59 06:59 14:59 Intake Total 90 Balance 90 Intake: Oral 90 Other: Voiding Method Toilet Toilet # Voids 1 Weight 72.575 kg 72.575 kg GENERAL: The patient is lying in bed and is not in acute distress. HENT: Small hematoma around the right parietal scalp. NEUROLOGICAL: Higher mental function: The patient is awake, alert, oriented to self, place and time. Patient is following commands. No aphasia and no neglect. Cranial nerves: The pupils are round, equal and reactive to light and accommodation. Visual weems are full to confrontation throughout. Extraocular movement is intact no nystagmus is noted. Facial sensation is normal to touch throughout. The facial strength is normal throughout. Hearing is normal bilaterally to hand rub. Tongue is midline and moved [id number] without any difficulty. No dysarthria is noted. Shoulder shrug is normal bilaterally. Motor: The strength is 5 over 5 throughout. Normal tone and bulk. Cerebellum: Normal finger to nose heel to duggan bilaterally. Sensation: Sensation is normal to touch throughout. Reflexes (right/left): 2+ throughout. Plantars are downgoing bilaterally. Results - Laboratory Findings CBC and BMP: 06/02/23 20:29 06/02/23 20:29 Abnormal Lab Findings: Abnormal Labs 06/02/23 06/02/23 06/02/23 20:29 20:29 20:29 RBC 3.77 L MCV 104.5 H MCH 35.7 H Plt Count 73 L Lymphocytes # (Manual) 0.72 L Creatinine 0.58 L Glucose 113 H Magnesium 1.2 L AST 105 H ALT 57 H Urine Protein 1+ H Urine Ketones 1+ H Amorphous Sediment Rare H Hyaline Casts 17 H Urine Mucus Few H U Benzodiazepines Scrn Detected H Assessment and Plan Assessment: This is a 2-year-old gentleman with significant alcohol use every other day who has been not feeling well as as a result has a not been drinking as much in the last couple days and had seizure-like activity. It seems that the patient had seizure like activity when the he has alcohol withdrawal but is unclear if the he also has a seizure-like activity episodes not related to alcohol withdrawal. Breakthrough seizure likely due to alcohol withdrawal and his alcohol level was less than 10. History of seizures for the past 3 years likely due to alcohol withdrawal. Unsure if he also has some component of seizures that are epileptic in nature Hypomagnesemia Macrocytosis Significant alcohol use every other day for years. Plan: I start the patient on Keppra 500 mg every 12 hours since it's unclear if patient has some seizure that aren't epileptic in nature and not related to his alcohol withdrawal seizure. I feel most of his seizure components are due to alcohol withdrawal. I ordered a routine EEG. Patient was notified that he needs to discontinue alcohol for a prolonged period of time to assess whether there is any epileptic seizures as well. Seizure precaution seizure pads I ordered vitamin B12 and folate level Patient is on thiamine 100 mg daily Will defer CIWA protocol to primary team. We'll defer the rest of the medical management to the primary team Because of the seizure per the [place] [employer] to avoid driving for 6 month until seizure-free, avoid heights, avoids swimming unassisted or using heavy machinery. Upon discharge the patient needs to follow-up with a neurologist within 2 weeks as an outpatient The plan was discussed with the patient, his brother was at bedside and his nurse Thank you for the consultation Time with Patient: Greater than 30
--- NOTE | 2023-06-03 17:08 | P.HPIM ---
History of Present Illness H&P Date: 06/03/23 This is a 38 year-old male who presented to the emergency department after a seizure at home and was found by family members outside on the ground and reportedly had a seizure for approximately 3-4 minutes and struck his head. Patient with a past medical history of seizures along with depression and chronic daily alcohol use along with nicotine dependence. Patient has not followed up with her primary care provider in a few years and was seeing Grsi Jimenez a nurse practitioner in the [place] area. Patient was also seeing [facility] for his seizures and has not taken any medications in years. Patient continues to drink approximately half to 1 pint of liquor daily and is extremely noncompliant with medications. Patient also reports he has history of glaucoma and is supposed to be taking drops to both eyes and has not at least 2 or 3 months. Labs on admission revealed a severely low magnesium of 1.2, total bili was 1.0, AST 105, ALT 57, sodium 137 with a potassium of 4.0, creatinine 0.58, urinalysis was negative, urine drug screen was positive for benzos and alcohol was less than 10. Patient reports his last drink was Friday. Patient was admitted to the hospital for concerns of EtOH withdrawal maintained on CIWA protocol with neurology consultation. Patient had CT brain in the ER showing no acute intracranial process with a right scalp hematoma without evidence of a fracture. It was measuring approximately 4.1 x 6 mm. EKG showed sinus rhythm. Review Of Systems: Constitutional: No fever, no chills, no night sweats. No weight change. No weakness, fatigue or lethargy. No daytime sleepiness. EENT: No headache. No blurred vision or double vision, no loss of vision. No loss of Hearing, no ringing in the ears, no dizziness. No nasal drainage or congestion. No epistaxis. No sore throat. Lungs: No shortness of breath, cough, no sputum production. No wheezing. Cardiovascular: No chest pain, no lower extremity edema. No palpitations. No paroxysmal nocturnal dyspnea. No orthopnea. No lightheadedness or dizziness. No syncopal episodes. Abdominal: No abdominal pain. No nausea, vomiting. No diarrhea. No constipation. No bloody or tarry stools.. No loss of appetite. Genitourinary: No dysuria, increased frequency, urgency. No urinary retention. Musculoskeletal: No myalgias. No muscle weakness, no gait dysfunction, no frequent falls. No back pain. No neck pain. Integumentary: No wounds, no lesions. No rash or pruritus. No unusual bruising. No change in hair or nails. Neurologic: No aphasia. No facial droop. No change in mentation. No head injury. Reported mild headache that is resolved. No paralysis. No paresthesia. Psychiatric: Reports depression. Reports anxiety. No mood swings. Endocrine: No abnormal blood sugars. No weight change. No excessive sweating or thirst. No cold intolerance. PHYSICAL EXAMINATION: GENERAL: The patient is alert and oriented x4, Well developed, well nourished. HEENT: Pupils are round and equally reacting to light. EOMI. no scleral icterus. No conjunctival pallor. Normocephalic, atraumatic. No pharyngeal erythema. No thyromegaly. CARDIOVASCULAR: S1 and S2 muffled PULMONARY: Breath sounds clear to auscultation with no wheezing or rhonchi noted. ABDOMEN: soft. Nontender on exam. . non-distended, normoactive bowel sounds. No palpable organomegaly. MUSCULOSKELETAL: No joint swelling or deformity. EXTREMITIES: No cyanosis, clubbing, or pedal edema. NEUROLOGICAL: Gross neurological examination did not reveal any focal deficits. SKIN: No rashes. Assessment: Seizure, breakthrough with history of seizures and noncompliance to medications most likely secondary to alcohol use Acute alcohol withdrawal with last drink being Friday and reports normally drinks half to 1 pint daily Hypomagnesemia Head injury with small hematoma noted on CT from the fall while having a seizure History of glaucoma Continued ongoing nicotine abuse Continued alcohol abuse with no plans to quit and denying rehab GI prophylaxis DVT prophylaxis Full code Plan: Patient was admitted for acute alcohol withdrawal and concerns for breakthrough seizure secondary to alcohol withdrawal. Patient reports has a past medical history of alcoholic-induced seizures and was taking medications although is extremely noncompliant and has not taken medications in years. Patient severely noncompliant with medications and follow-up and has not seen a doctor in quite some time. Patient being started on Keppra and EEG is ordered per neurology We'll have social work evaluate and provide resources on discharge for PCP and neurology follow-up Discussed with the patient about complete alcohol and tobacco cessation and patient reports has no intentions at this time to quit drinking and is refusing any form of alcohol rehab at this time Patient reports he does not work and also explained the risks involved with continued alcohol abuse and patient verbalized understanding. Encouraged to increase activity as tolerated Replace electrolytes per protocol and will follow-up on repeat labs Awaiting EEG and monitor closely for any signs of alcohol withdrawal. Continue [facility] protocol Probable discharge in 24 hours The impression and plan of care has been dictated by Perla Baker, nurse practitioner as directed. Dr. Jess MD I have performed a history and examination and MDM of this patient, discussed the same with the dictator, and agree with the dictator's assessment and plan as written ,documented as a scribe. Based on total visit time, I have performed more than 50% of the visit. Any additional findings or plans will be noted. Past Medical History Past Medical History: Seizure Disorder Additional Past Medical History / Comment(s): hernias, glacoma History of Any Multi-Drug Resistant Organisms: None Reported Additional Past Surgical History / Comment(s): stomach surgery, spleen sx Past Psychological History: Depression Smoking Status: Current every day smoker Past Alcohol Use History: Daily Past Drug Use History: None Reported Medications and Allergies Home Medications Medication Instructions Recorded Confirmed Type Ibuprofen [Motrin Ib] 800 mg PO Q8H PRN 12/25/20 06/02/23 History Allergies Allergy/AdvReac Type Severity Reaction Status Date / Time No Known Allergies Allergy Verified 06/02/23 22:27 Physical Exam Vitals: Vital Signs Temp Pulse Pulse Resp BP BP Pulse Ox 06/03/23 07:00 97.8 F 76 18 130/85 99 06/03/23 00:40 97.5 F L 91 18 128/82 98 06/03/23 00:00 80 18 114/80 98 06/02/23 22:27 89 18 121/86 98 06/02/23 19:41 97.9 F 93 18 132/96 97 Intake and Output 06/02/23 06/03/23 06/03/23 22:59 06:59 14:59 Intake Total 90 Balance 90 Intake: Oral 90 Other: Voiding Method Toilet Toilet # Voids 1 Weight 72.575 kg 72.575 kg Results CBC & Chem 7: 06/02/23 20:29 06/02/23 20:29 Labs: Abnormal Lab Results - Last 24 Hours (Table) 06/02/23 06/02/23 06/02/23 Range/Units 20:29 20:29 20:29 RBC 3.77 L (4.30-5.90) m/uL MCV 104.5 H (80.0-100.0) fL MCH 35.7 H (25.0-35.0) pg Plt Count 73 L (150-450) k/uL Lymphocytes # (Manual) 0.72 L (1.0-4.8) k/uL Creatinine 0.58 L (0.66-1.25) mg/dL Glucose 113 H (74-99) mg/dL Magnesium 1.2 L (1.6-2.3) mg/dL AST 105 H (17-59) U/L ALT 57 H (4-49) U/L Urine Protein 1+ H (Negative) Urine Ketones 1+ H (Negative) Amorphous Sediment Rare H (None) /hpf Hyaline Casts 17 H (0-2) /lpf Urine Mucus Few H (None) /hpf U Benzodiazepines Scrn Detected H (NotDetected) Assessment and Plan Time with Patient: Greater than 30
--- NOTE | 2023-06-03 18:44 | EEG ---
ELECTROENCEPHALOGRAM REPORT CLINICAL HISTORY: This is a 38-year-old gentleman with alcohol use, who had a breakthrough seizure. The video EEG is obtained to evaluate for seizure and epileptiform discharges. RELEVANT MEDICATIONS: Keppra and Ativan. EEG TYPE: This is a routine 21-channel EEG with video using the 10/20 electrode placement system. DESCRIPTION: Wakefulness is only obtained. During awake state, the posterior-dominant rhythm consists of [id number] voltage of 9 to 9.5 hertz activity. There is no physiological sleep architecture. There is no focal slowing. Interictal and ictal is none. ACTIVATION PROCEDURE: Photic stimulation did not evoke a posterior driving response. There is no abnormality during the photic stimulation. Hyperventilation is not performed. CLINICAL INTERPRETATION: This is a normal routine EEG. There is no focal slowing, epileptiform discharge, or seizure on the EEG. A normal routine EEG does not rule out any underlying epilepsy. Clinical correlation is recommended. JERRICA / MARY: [id number] /
[2023-06-03 22:49] VITALS: RESP 16
[2023-06-04] MEDS: SODIUM CHLORIDE 0.9% 1,000 ML IV SCH (01:48)
[2023-06-04 08:59] VITALS: BP 127/86; PULSE 76; TEMP 98.2
[2023-06-04] MEDS: levETIRAcetam 500 MG TAB PO SCH (09:12)
[2023-06-04] MEDS: THIAMINE 100 MG TAB PO SCH (09:12)
[2023-06-04 09:32] LABS: BUN/Creat Ratio 10.29 Ratio (12.00-20.00); Blood Urea Nitrogen 7.2 mg/dL (9.0-27.0); Carbon Dioxide 23.6 mmol/L (21.6-31.8); Chloride 103 mmol/L (96-109); Glucose 82 mg/dL (70-110); Potassium 4.6 mmol/L (3.5-5.5); Sodium 138 mmol/L (135-145)
== END 2023-06-04 10:14 | disposition home or self-care (01) ==
LOC: EC 19:39 → INTOOBSV 23:17 → 6NMEDSUR 23:17
PROVIDERS: ADMIT Hospitalist; ATTEND Hospitalist
DX: G40.909 Epilepsy, unspecified, not intractable, without status epilepticus (principal); F10.239 Alcohol dependence with withdrawal, unspecified; Y90.0 Blood alcohol level of less than 20 mg/100 ml; E83.42 Hypomagnesemia; D75.89 Other specified diseases of blood and blood-forming organs; S00.03XA Contusion of scalp, initial encounter; W19.XXXA Unspecified fall, initial encounter; Z91.148 Patient's other noncompliance with medication regimen for other reason; F32.A Depression, unspecified; F17.200 Nicotine dependence, unspecified, uncomplicated
CPT/HCPCS: 96361 ×2; 96366; 96376; 96365; 96372; 96375; 99285; 36415; 95816; 93005; 80053; 80048; 82607; 82746; 83735 ×2; 85025; 81001; 80306; 70450; G0378 ×3; G0480; J2060; J3411; J3475 ×2; 80320